=== PATIENT | female | born 1975 | race African-American/Black ===

== ENCOUNTER 2020-11-02 14:45 | Emergency (ER) | payer MEDICAID ==
[~2020-11-02] VITALS: Ht 160 cm; Wt 73.5 kg
[2020-11-02 14:51] VITALS: BP 134/85
== END 2020-11-02 16:59 | disposition home or self-care (01) ==
LOC: ER 14:45
DX: S63.601A Unspecified sprain of right thumb, initial encounter (principal); E11.9 Type 2 diabetes mellitus without complications; I10 Essential (primary) hypertension; Z88.0 Allergy status to penicillin; X50.1XXA Overexertion from prolonged static or awkward postures, initial encounter; Y93.89 Activity, other specified; Y92.89 Other specified places as the place of occurrence of the external cause; Y99.8 Other external cause status
CPT/HCPCS: 73130

== ENCOUNTER → 2021-04-23 | Outpatient (CLI) | payer MEDICAID ==
[2021-04-23 14:44] LABS: Leuteinizing Hormone 12.5 IU/L
[2021-04-23 14:45] LABS: Follicle Stimulating Hormone 10.24 IU/L (SEE BELOW)
== END | disposition home or self-care (01) ==
LOC: LAB 13:39
PROVIDERS: ATTEND Obstetrics & Gynecology
DX: N95.1 Menopausal and female climacteric states (principal)
CPT/HCPCS: 36415; 82670; 83001; 83002; 84403; 84443